=== PATIENT | female | born 1955 | race Caucasian/White ===

== ENCOUNTER 2017-02-26 12:23 | Emergency (ER) | payer BC, OTHER ==
[~2017-02-26] VITALS: Ht 167.6 cm; Wt 95.0 kg
[2017-02-26 12:28] VITALS: Ht 167.6 cm; Wt 95.0 kg
[2017-02-26] MEDS ORDERED: KETOROLAC 30 MG INJ IM STA (13:13)
--- NOTE | 2017-02-26 14:20 | RADRPT ---
PROCEDURE: XR Right Shoulder. CLINICAL INDICATION: Trauma due to a fall. Right shoulder pain. TECHNIQUE: Three views. Frontal internal rotation, frontal external rotation, and scapular Y-view . COMPARISON: No prior study is available for comparison. FINDINGS: There is a nondisplaced fracture of the superior lateral aspect of the humeral head articular surfac e. A small bone fragment at the site measures approximately 1.2 x 0.6 cm. There is no other fractu re and there is no dislocation. The soft tissues are normal. The articular surfaces are otherwise intact. There is no lytic or blastic lesion. There is no radiopaque foreign body. IMPRESSION: 1. Nondisplaced fracture of the superior lateral aspect of the humeral head articular surface. A s mall bone fragment at this site measures approximately 1.2 x 0.6 cm. 2. Otherwise unremarkable study. RPTAT: QQ .Julio Cesar Sanchez MD, MD Date Time Electronically viewed and signed by .Julio Cesar Sanchez MD, on 02/26/2017 14:20 .R/
--- NOTE | 2017-02-26 14:21 | RADRPT ---
PROCEDURE: XR Right Humerus. CLINICAL INDICATION: Trauma due to a fall. Right arm pain. TECHNIQUE: AP and lateral views of the right humerus were performed. COMPARISON: None. FINDINGS: There is a small nondisplaced fracture of the superior lateral aspect of the humeral head articular surface with a bone fragment measuring approximate 1.2 x 0.6 cm. There is no other fracture and the re is no dislocation. The soft tissues are normal. The articular surfaces are otherwise intact. There is no lytic or blastic lesion. There is no radiopaque foreign body. IMPRESSION: 1. Small nondisplaced fracture of the superior lateral aspect of the humeral head articular surface . 2. Otherwise unremarkable images of the right humerus. RPTAT: QQ .Julio Cesar Sanchez MD, Date Time Electronically viewed and signed by .Julio Cesar Sanchez MD, on 02/26/2017 14:21 .R/
--- NOTE | 2017-02-26 14:22 | RADRPT ---
PROCEDURE: XR Chest. CLINICAL INDICATION: Trauma due to a fall. Chest pain. TECHNIQUE: Single frontal view. COMPARISON: None. FINDINGS: The lungs are clear. The heart size is normal. There is no pleural effusion or pneumothorax. A nondisplaced fracture of the superior lateral aspect of the right humeral head is noted. IMPRESSION: 1. Nondisplaced fracture of the superolateral aspect of the right humeral head. 2. Otherwise unremarkable chest radiograph. RPTAT: QQ .Julio Cesar Sanchez MD, Date Time Electronically viewed and signed by .Julio Cesar Sanchez MD, on 02/26/2017 14:22 .R/
[2017-02-26] MEDS ORDERED: NAPR-260 PO (14:39)
[2017-02-26] MEDS ORDERED: HYDR-906 PO (14:40)
--- NOTE | 2017-02-26 14:49 | ERD ---
ER Documentation Chief Complaint Date/Time DATE: 02/26/17 TIME: 14:46 Chief Complaint Complains of right shoulder pain after a fall HPI Patient is a 61-year-old female here with daughter who presents to the ED with right shoulder pain after sustaining a fall today. Patient states that she slipped and fell on her right shoulder. Denies passing out or hitting her head or losing consciousness. Denies chest pain or cough or shortness of breath. Denies pain on any other parts of her body. Denies blurry vision. Has not taken any medicine for her symptoms. Denies radiation of pain. Denies numbness or tingling ROS All systems reviewed and are negative except as per history of present illness. Medications Home Meds Active Scripts Hydrocodone/Acetaminophen ([place] 5-325 Tablet) 1 Each Tablet, 1 TAB PO Q6H Y for PAIN, #5 TAB Prov:SARANYA ACHARYA PA-C 02/26/17 Naproxen* (Naprosyn*) 500 Mg Tablet, 500 MG PO BID Y for PAIN AND/OR INFLAMMATION, #30 TAB Prov:SARANYA ACHARYA PA-C 02/26/17 Allergies Allergies: Coded Allergies: iodine (Verified Allergy, Intermediate, swelling, 02/26/17) PMhx/Soc History of Surgery: Yes (pituitary sx, cardio ablation) Anesthesia Reaction: No Hx Neurological Disorder: No Hx Respiratory Disorders: No Hx Cardiac Disorders: No Hx Psychiatric Problems: No Hx Miscellaneous Medical Probl: No Hx Alcohol Use: No Hx Substance Use: No Hx Tobacco Use: No Smoking Status: Never smoker FmHx Family History: No coronary disease, No diabetes, No other Physical Exam Vitals Vital Signs Date Time Temp Pulse Resp B/P Pulse Ox O2 Delivery O2 Flow Rate FiO2 02/26/17 12:28 98.2 68 20 187/97 99 Physical Exam GENERAL: Well-developed, well-nourished female. Appears in no acute distress. LUNG: Clear to auscultation bilaterally. No rhonchi, wheezing, rales or coarse breath sounds. HEART: Regular rate and rhythm. No murmurs, rubs or gallops. ABDOMEN: No scars, ecchymosis or rashes noted. Soft, nontender, and nondistended. Positive bowel sounds in all four quadrants. No rebound tenderness , no guarding. (-) McBurneys point tenderness. No CVA tenderness. BACK: No midline tenderness. Extremities: Equal pulses bilaterally. No peripheral clubbing, cyanosis or edema. No unilateral leg swelling. Tenderness to the anterior right and lateral right shoulder. Slight tenderness in the lateral right clavicle. Unable to fully elevate extend. Difficulty with internal rotation. No snuffbox tenderness. No pain at the elbow or wrist joint. Radius, ulnar and median nerve intact. No wrist drop. Sensation intact. No step-offs or deformities. No open wounds or lacerations. No ecchymosis or erythema. NEUROLOGIC: Alert and oriented. Moving all four extremities. 5/5 strength in all extremities. Normal speech. Steady gait. SKIN: Normal color. Warm and dry. No rashes or lesions. Capillary refill < 2 seconds Results 24 hrs Current Medications Medications (Trade) Dose Ordered Sig/Reji Route PRN Reason Start Time Stop Time Status Last Admin Dose Admin Ketorolac Tromethamine (Toradol) 30 mg ONCE STAT IM 02/26/17 13:13 02/26/17 13:14 DC 02/26/17 13:23 Procedures/MDM ER COURSE: I kept the patient and/or family informed of laboratory and diagnostic imaging results throughout the emergency room course. IMAGING STUDIES [place] [address] Radiology Main Line: [phone] DIAGNOSTIC IMAGING REPORT Patient: ELIF MARQUEZ : 1955 Age: 61 Sex: F MR #: [id number] DOS: 02/26/17 1313 Ordering MD: SARANYA ACHARYA PA-C Location: [facility] Room/Bed: PROCEDURE: XR Right Humerus. CLINICAL INDICATION: Trauma due to a fall. Right arm pain. TECHNIQUE: AP and lateral views of the right humerus were performed. COMPARISON: None. FINDINGS: There is a small nondisplaced fracture of the superior lateral aspect of the humeral head articular surface with a bone fragment measuring approximate 1.2 x 0.6 cm. There is no other fracture and there is no dislocation. The soft tissues are normal. The articular surfaces are otherwise intact. There is no lytic or blastic lesion. There is no radiopaque foreign body. IMPRESSION: 1. Small nondisplaced fracture of the superior lateral aspect of the humeral head articular surface. 2. Otherwise unremarkable images of the right humerus. RPTAT: QQ .Julio Cesar Sanchez MD, MD Date Time Electronically viewed and signed by .Julio Cesar Sanchez MD, on 02/26/2017 14:21 .R/ CC: SARANYA ACHARYA PA-C MEDICATIONS Toradol. Tolerated well with no adverse reaction MEDICAL DECISION MAKING: This is a 61-year-old female who presents with right shoulder pain after sustaining a fall today. Vital signs were reviewed. Patient is afebrile. Patient is not hypoxic. X-rays of by radiologist shows Small nondisplaced fracture of the superior lateral aspect of the humeral head articular surface. Patient was given a shoulder immobilizer and a sling. Neurovascularly intact post placement. Low suspicion for dislocation, septic joint, compartment syndrome, osteomyelitis, cellulitis, avascular necrosis, neurological injury, vascular injury, tendon laceration. DISCHARGE: At this time, patient is stable for discharge and outpatient management with no new complaints during the ER course. Patient was sent home with Winston Reyes , copy of imaging report and to follow-up with orthopedics. Patient will be discharged home with instructions to recheck for new or worsening symptoms such as fever, nausea, weakness, LOC and to follow up with primary care in the next 1 -2 days. Patient was advised to return to the ER for any new or worsening symptoms. Plan was discussed and patient and/or family understands and agrees. Home instructions were given. Departure Diagnosis: Primary Impression: Fracture of humeral head Encounter type: initial encounter Fracture type: closed Laterality: right Qualified Code: S42.291A - Fracture of humeral head, right, closed, initial encounter Condition: Stable Patient Instructions: Leg or Arm Fractures Referrals: [facility] 7 a.m.- 11 p.m. Every Day of the Week NO APPOINTMENT OR AUTHORIZATION NEEDED Additional Instructions: Call your primary care doctor TOMORROW for an appointment during the next 1-2 days.See the doctor sooner or return here if your condition worsens before your appointment time. SARANYA ACHARYA PA-C Feb 26, 2017 14:49
[2017-02-26 14:57] VITALS: BP 153/74; PULSE 72; RESP 19; TEMP 98.3
== END 2017-02-26 14:58 | disposition home or self-care (01) ==
LOC: FTE 12:23
DX: S42.291A Other displaced fracture of upper end of right humerus, initial encounter for closed fracture (principal); R07.9 Chest pain, unspecified; W18.39XA Other fall on same level, initial encounter; Y92.9 Unspecified place or not applicable
CPT/HCPCS: 29105; 71010; 73030; 73060; J1885; 96372

== ENCOUNTER → 2017-08-11 | Outpatient (CLI) | payer OTHER ==
[~2017-08-11] MED LIST: HYDR-906 PO; NAPR-260 PO
--- NOTE | 2017-08-11 21:47 | HKNOTE ---
DATE OF SERVICE: 08/11/2017 CHIEF COMPLAINT: Bilateral knee pain. HISTORY OF PRESENT ILLNESS: This is a 61-year-old female who has had a history of bilateral patella r instability. She is complaining of pain in the bilateral knees. She states that the pain is only when she goes from a sitting to a standing position. Otherwise, she does not have any pain. She d oes not use any assistive devices. She does not wear any braces. She does not require any pain med ications. She denies any recent dislocations or instability. She has not had any previous treatmen t. She denies any groin or back pain. GAIT: Nonantalgic gait, reciprocal gait pattern. RIGHT KNEE EXAMINATION: Neutral alignment. Nontender over the medial and lateral joint lines. No patellar apprehension. Negative Tima, negative anterior drawer, negative posterior drawer, negat wade Mario's. LEFT KNEE EXAMINATION: Neutral alignment. Nontender over the medial and lateral joint lines. No p atellar apprehension. Negative Tima, negative anterior drawer, negative posterior drawer, negati ve Mario's. IMAGING: Right knee x-ray, 3 views: Three views of the right knee demonstrates medial joint space narrowing with marginal osteophytes. There is a subluxation of the patella. Left knee x-ray, 3 vie ws: Three views of the left knee demonstrates medial joint space narrowing with marginal osteophyte s. There is a subluxation of the patella. IMPRESSION: A 61-year-old female with bilateral knee osteoarthritis and patellar instability. PLAN: I discussed the treatment options with the patient. We will request authorization for physic al therapy for bilateral knees, including quadriceps strengthening. She can take ibuprofen as neede d. I also discussed weight loss with the patient. If she continues to have pain in the future, she can return for bilateral knee injections. Dictated By: COLE PENNY/REMI Conf#: [id number] DID#: [id number]
--- NOTE | 2017-08-12 10:48 | RADRPT ---
PROCEDURE: XR Knee. CLINICAL INDICATION: Bilateral knee pain TECHNIQUE: 3 views of the right knee and 3 views of the left knee are available for review. COMPARISON: None available FINDINGS: Right knee: There is no acute fracture. Alignment is normal. There is severe patellofemoral and mild to moderate medial and lateral femorotibial compartment oste oarthrosis. There is prominent subchondral cystic change and bone on bone articulation at the patellofemoral com partment. There is a small knee joint effusion. Left knee: There is no acute fracture. Alignment is normal. There is moderate to severe patellofemoral and mild to moderate medial and lateral femorotibial comp artment osteoarthrosis. There is prominent subchondral cystic change and near bone on bone articulation at the patellofemora l compartment. There is a small knee joint effusion. There is a 15 mm ossified body anteriorly noted . IMPRESSION: 1. No radiographic evidence of acute osseous abnormality. 2. Tricompartmental osteoarthrosis of both knees as above, patellofemoral compartment predominant, r ight slightly greater than left. 3. A 15 mm ossified intra-articular body anteriorly on the left. RPTAT: UU .Christiano Hackett MD, MD Date Time Electronically viewed and signed by .Christiano Hackett MD, MD on 08/12/2017 10:48 .K/
== END | disposition home or self-care (01) ==
LOC: HKI 13:37
PROVIDERS: ATTEND Orthopaedic Surgery Adult Reconstructive Orthopaedic Surgery
DX: M17.0 Bilateral primary osteoarthritis of knee (principal)
CPT/HCPCS: 73564; Z7500; G0463